=== PATIENT | male | born 1985 | race Caucasian/White ===

== ENCOUNTER 2022-05-22 06:24 | Emergency (ER) | payer SELFPAY ==
[~2022-05-22] VITALS: Ht 167.6 cm; Wt 69.0 kg
[2022-05-22 06:44] VITALS: BP 134/89
[2022-05-22] MEDS ORDERED: SODIUM CHLORIDE 0.9% 1,000 ML IV ONE (07:15)
[2022-05-22 08:17] LABS: HEMATOCRIT. 44.9 % (42.0-52.0); HEMOGLOBIN. 15.2 g/dL (14.0-18.0); MEAN CORPUSCULAR HEMOGLOBIN 29.4 pg (28.0-32.0); MEAN PLATELET VOLUME 8.1 fl (7.4-10.4); PLATELET 174 x1000/uL (130-400); RED BLOOD CELL COUNT 5.16 mill/uL (4.7-6.1); RED CELL DISTRIBUTION WIDTH 13.5 % (11.6-14.6)
[2022-05-22 08:18] LABS: BASOPHILS % 0.2 % (0.0-2.0); EOSINOPHILS % 2.4 % (0.0-5.0); LYMPHOCYTES % 8.5 % (20.0-50.0); MONOCYTES % 8.9 % (2.0-8.0)
[2022-05-22 08:25] LABS: CHLORIDE 105 mEq/L (98-107)
[2022-05-22 08:33] LABS: ETHANOL BLOOD < 10 mg/dL
[2022-05-22 08:43] LABS: CARBAMAZEPINE < 0.5 ug/mL (4-12)
[2022-05-22] MEDS ORDERED: CARBAMAZEPINE 200MG TABLET PO ONE (09:00)
[2022-05-22] MEDS ORDERED: IBUP-2029 MT (10:43)
[2022-05-27] MEDS ORDERED: LEVETIRACETAM 1000MG PREMIX 100 ML IV NR (22:30)
[2022-05-27 22:59] LABS: BASOPHILS % 0.5 % (0.0-2.0); EOSINOPHILS % 1.5 % (0.0-5.0); HEMOGLOBIN. 14.1 g/dL (14.0-18.0); MEAN CORPUSCULAR HEMOGLOBIN 28.8 pg (28.0-32.0); MEAN CORPUSCULAR VOLUME 85.7 fL (80.0-94.0); MEAN PLATELET VOLUME 7.3 fl (7.4-10.4); MONOCYTES % 6.5 % (2.0-8.0); NEUTROPHILS % 83.5 % (40.0-76.0); PLATELET 242 x1000/uL (130-400); RED BLOOD CELL COUNT 4.89 mill/uL (4.7-6.1); RED CELL DISTRIBUTION WIDTH 12.9 % (11.6-14.6)
[2022-05-27 23:05] LABS: CHLORIDE 101 mEq/L (98-107)
== END 2022-05-22 13:25 | disposition home or self-care (01) ==
LOC: ER 06:31
DX: U07.1 COVID-19 (principal); R56.9 Unspecified convulsions; J02.9 Acute pharyngitis, unspecified; R05.9 Cough, unspecified
CPT/HCPCS: 36415; 71045; 80053; 80156; 80320; 85025; 87070; 87426; 87430; 96360; 99284; C9803; J7030; G0480

== ENCOUNTER 2022-05-27 19:13 | Emergency (ER) | payer SELFPAY ==
[~2022-05-27] VITALS: Ht 162.6 cm; Wt 69.0 kg
[~2022-05-27 19:13] MED LIST: IBUP-2029 MT
[2022-05-27] MEDS ORDERED: LEVETIRACETAM 500MG TABLET PO ONE (23:15)
[2022-05-27] MEDS ORDERED: LEVETIRACETAM 500MG TABLET PO NR (23:45)
[2022-05-28 01:48] VITALS: BP 113/76
== END 2022-05-28 01:52 | disposition home or self-care (01) ==
LOC: ER 19:25
DX: G40.909 Epilepsy, unspecified, not intractable, without status epilepticus (principal); R00.0 Tachycardia, unspecified
CPT/HCPCS: 93005; 99283; J1953

== ENCOUNTER 2022-09-28 05:11 | Emergency (ER) | payer MEDICAID ==
[~2022-09-28] VITALS: Ht 180.3 cm; Wt 68.0 kg
[2022-09-28 05:56] LABS: BASOPHILS % 0.5 % (0.0-2.0); EOSINOPHILS % 9.9 % (0.0-5.0); HEMATOCRIT. 45.1 % (42.0-52.0); HEMOGLOBIN. 15.6 g/dL (14.0-18.0); MEAN CORPUSCULAR HEMOGLOBIN 29.1 pg (28.0-32.0); MEAN CORPUSCULAR VOLUME 84.1 fL (80.0-94.0); MEAN PLATELET VOLUME 8.2 fl (7.4-10.4); MONOCYTES % 4.4 % (2.0-8.0); NEUTROPHILS % 46.2 % (40.0-76.0); PLATELET 232 x1000/uL (130-400); RED BLOOD CELL COUNT 5.36 mill/uL (4.7-6.1); RED CELL DISTRIBUTION WIDTH 13.3 % (11.6-14.6)
[2022-09-28 05:57] LABS: CHLORIDE 104 mEq/L (98-107)
[2022-09-28 06:15] LABS: ETHANOL BLOOD < 10 mg/dL
[2022-09-28 06:18] LABS: CARBAMAZEPINE < 0.5 ug/mL (4-12)
[2022-09-28 06:25] LABS: CLARITY URINE CLEAR (CLEAR); COLOR URINE YELLOW (YELLOW); KETONES URINE NEGATIVE (NEGATIVE); LEUKOCYTE ESTERASE URINE NEGATIVE (NEGATIVE); NITRITE URINE NEGATIVE (NEGATIVE); OCCULT BLOOD URINE 1+ (NEGATIVE); PH URINE 5.5 (4.5-8.0); PROTEIN URINE 1+ (NEGATIVE); SPECIFIC GRAVITY URINE 1.017 (1.005-1.030); UROBILINOGEN URINE 0.2 E.U./dL (0.2-1.0)
[2022-09-28 06:55] LABS: *AMPHETAMINES SCREEN URINE NEGATIVE (NEGATIVE); *BARBITURATES SCREEN URINE NEGATIVE (NEGATIVE); *BENZODIAZEPINES SCREEN URINE NEGATIVE (NEGATIVE); *COCAINE SCREEN URINE NEGATIVE (NEGATIVE); CANNABINOID URINE SCREEN NEGATIVE (NEGATIVE); METHADONE URINE SCREEN NEGATIVE (NEGATIVE); OPIATES URINE SCREEN NEGATIVE (NEGATIVE); PHENCYCLIDINE URINE SCREEN NEGATIVE (NEGATIVE)
[2022-09-28 11:55] VITALS: BP 119/70
== END 2022-09-28 12:07 | disposition home or self-care (01) ==
LOC: ER 05:11
DX: R56.9 Unspecified convulsions (principal)
CPT/HCPCS: 36415; 80053; 80156; 80165; 80184; 80185; 80305; 80320; 81003; 85025; 99285; Z7610; G0480